=== PATIENT | male | born 1945 | race African-American/Black ===

== ENCOUNTER 2018-09-03 12:44 | Inpatient (IN) | payer MEDICARE ==
[~2018-09-03] VITALS: Ht 167.6 cm; Wt 72.4 kg
--- NOTE | 2018-09-03 12:58 | EKG ---
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
[2018-09-03] MEDS ORDERED: NITROGLYCERIN SUBLINGUAL 0.4 MG BOTTLE OF 25. SL PRN (13:00)
[2018-09-03 13:07] LABS: BASO % 1 % (0-3); EOS % 0 % (0-3); HEMATOCRIT 44.6 % (39.0-53.0); LYMPH # 1.1 x10^3/uL (1.0-4.8); LYMPH % 22 % (24-48); MEAN CORPUSCULAR HEMOGLOBIN 28 pg (25-35); MEAN CORPUSCULAR HGB CONC 34 g/dL (31-37); MEAN CORPUSCULAR VOLUME 82 fL (79-100); MONO # 0.4 x10^3/uL (0.0-1.1); MONO % 8 % (0-9); NEUT # 3.5 x10^3uL (1.8-7.7); NEUT % 70 % (31-73); PLATELET COUNT 265 x10^3/uL (140-400); RED BLOOD COUNT 5.44 x10^6/uL (4.30-5.70); RED CELL DISTRIBUTION WIDTH 14.7 % (11.5-14.5)
[2018-09-03] MEDS ORDERED: ASPIRIN 81 MG TAB.CHEW PO ONE (13:15)
[2018-09-03 13:26] LABS: ALBUMIN 4.1 g/dL (3.4-5.0); ALBUMIN/GLOBULIN RATIO 1.2 (1.0-1.7); CALCIUM 9.4 mg/dL (8.5-10.1); CREATININE 1.2 mg/dL (0.7-1.3); GFR 71.8; MAGNESIUM 2.4 mg/dL (1.8-2.4); TOTAL BILIRUBIN 0.7 mg/dL (0.2-1.0); TOTAL PROTEIN 7.6 g/dL (6.4-8.2)
--- NOTE | 2018-09-03 13:46 | RAD ---
EXAM: CHEST 1 VIEW. HISTORY: Chest pain. COMPARISON: None. FINDINGS: A frontal view of the chest is obtained. There are no confluent infiltrates. There is no pneumothorax or pleural effusion. The heart is not enlarged. Changes of rotator cuff arthropathy and prior rotator cuff repair are noted. IMPRESSION: 1. No confluent infiltrates. Electronically signed by: Bryan Gonzalez MD (09/03/2018 1:44 PM) [facility]
--- NOTE | 2018-09-03 14:02 | PHYS DOC ---
Past History Past Medical History: High Cholesterol, Hypertension Past Surgical History: Other Smoking: Non-smoker Alcohol Use: None Drug Use: None Adult General Chief Complaint Chief Complaint: CHEST PAIN HPI HPI Patient is a 72 year old male who presents with complaining of chest pain. Patient complaining of nonexertional right side and substernal chest pain as an aching pain since 9 AM today as a constant pain that getting worse with movement. Patient denies radiation of pain, shortness of breath, nausea, palpitation, dizziness, focal neuro deficit. Patient states he took 162 mg of aspirin and 2 Advil with decrease of pain from 7 to 5. Patient had a potential and dyslipidemia and family history of coronary artery disease and denies history of chest pain and coronary artery disease, diabetes mellitus, smoking Review of Systems Review of Systems Constitutional: Denies fever or chills [] Eyes: Denies change in visual acuity, redness, or eye pain [] HENT: Denies nasal congestion or sore throat [] Respiratory: Denies cough or shortness of breath [] Cardiovascular: No additional information not addressed in HPI [] GI: Denies abdominal pain, nausea, vomiting, bloody stools or diarrhea [] : Denies dysuria or hematuria [] Musculoskeletal: Denies back pain or joint pain [] Integument: Denies rash or skin lesions [] Neurologic: Denies headache, focal weakness or sensory changes [] Endocrine: Denies polyuria or polydipsia [] All other systems were reviewed and found to be within normal limits, except as documented in this note. Current Medications Current Medications Current Medications Medications (Trade) Dose Ordered Sig/Memo Start Time Stop Time Status Last Admin Dose Admin Aspirin (Children'S Aspirin) 162 mg 1X ONCE 09/03/18 13:15 09/03/18 13:16 DC 09/03/18 13:08 162 MG Nitroglycerin (Nitrostat) 0.4 mg PRN Q5MIN PRN 09/03/18 13:00 09/04/18 12:59 09/03/18 13:08 0.4 MG Allergies Allergies Allergies Coded Allergies Type Severity Reaction Last Updated Verified No Known Drug Allergies 09/03/18 No Physical Exam Physical Exam Constitutional: Well developed, well nourished, mild distress, non-toxic appearance. [] HENT: Normocephalic, atraumatic, oropharynx moist, no oral exudates, nose normal. [] Eyes: PERRLA, EOMI, conjunctiva normal, no discharge. [] Neck: Normal range of motion, no tenderness, supple, no stridor. [] Cardiovascular:Heart rate regular rhythm, no murmur [] Lungs & Thorax: Bilateral breath sounds clear to auscultation [] Abdomen: Bowel sounds normal, soft, no tenderness, no masses, no pulsatile masses. [] Skin: Warm, dry, no erythema, no rash. [] Back: No tenderness, no CVA tenderness. [] Extremities: No tenderness, no cyanosis, no clubbing, ROM intact, no edema. [] Neurologic: Alert and oriented X 3, normal motor function, normal sensory function, no focal deficits noted. [] Psychologic: Affect normal, judgement normal, mood normal. [] Current Patient Data Vital Signs Vital Signs Date Time Temp Pulse Resp B/P (MAP) Pulse Ox O2 Delivery O2 Flow Rate FiO2 09/03/18 13:08 74 164/105 09/03/18 12:46 98.2 18 98 Room Air Lab Results Laboratory Tests Test 09/03/18 12:59 White Blood Count 5.0 x10^3/uL (4.0-11.0) Red Blood Count 5.44 x10^6/uL (4.30-5.70) Hemoglobin 15.0 g/dL (13.0-17.5) Hematocrit 44.6 % (39.0-53.0) Mean Corpuscular Volume 82 fL (79-100) Mean Corpuscular Hemoglobin 28 pg (25-35) Mean Corpuscular Hemoglobin Concent 34 g/dL (31-37) Red Cell Distribution Width 14.7 % (11.5-14.5) H Platelet Count 265 x10^3/uL (140-400) Neutrophils (%) (Auto) 70 % (31-73) Lymphocytes (%) (Auto) 22 % (24-48) L Monocytes (%) (Auto) 8 % (0-9) Eosinophils (%) (Auto) 0 % (0-3) Basophils (%) (Auto) 1 % (0-3) Neutrophils # (Auto) 3.5 x10^3uL (1.8-7.7) Lymphocytes # (Auto) 1.1 x10^3/uL (1.0-4.8) Monocytes # (Auto) 0.4 x10^3/uL (0.0-1.1) Eosinophils # (Auto) 0.0 x10^3/uL (0.0-0.7) Basophils # (Auto) 0.0 x10^3/uL (0.0-0.2) Prothrombin Time 10.0 SEC (9.4-11.4) Prothrombin Time INR 1.0 (0.9-1.1) PTT 26 SEC (23-33) D-Dimer (Rachel) 0.32 mg/L (0.00-0.50) Sodium Level 139 mmol/L (136-145) Potassium Level 4.0 mmol/L (3.5-5.1) Chloride Level 104 mmol/L (98-107) Carbon Dioxide Level 33 mmol/L (21-32) H Anion Gap 2 (6-14) L Blood Urea Nitrogen 13 mg/dL (8-26) Creatinine 1.2 mg/dL (0.7-1.3) Estimated GFR (Cockcroft-Gault) 71.8 BUN/Creatinine Ratio 11 (6-20) Glucose Level 114 mg/dL (70-99) H Calcium Level 9.4 mg/dL (8.5-10.1) Magnesium Level 2.4 mg/dL (1.8-2.4) Total Bilirubin 0.7 mg/dL (0.2-1.0) Aspartate Amino Transferase (AST) 22 U/L (15-37) Alanine Aminotransferase (ALT) 28 U/L (16-63) Alkaline Phosphatase 66 U/L (46-116) Creatine Kinase 200 U/L (39-308) Troponin I Quantitative < 0.017 ng/mL (0-0.055) JK-Wro-E-Type Natriuretic Peptide 152 pg/mL (0-124) H Total Protein 7.6 g/dL (6.4-8.2) Albumin 4.1 g/dL (3.4-5.0) Albumin/Globulin Ratio 1.2 (1.0-1.7) Lipase 131 U/L (73-393) EKG EKG KG interpreted by me. EKG at 1349 showed normal sinus rhythm at rate of 79, PACs , ST and T-wave abnormalities in lateral leads, left ventricular strain, LVH, no acute ST and T-wave abnormalities Radiology/Procedures Radiology/Procedures [address] [address] IMAGING REPORT Signed PATIENT: FRED MAYERS ACCOUNT: [id number] : 1945 LOCATION: ER AGE: 72 SEX: M EXAM STATUS: REG ER ORD. PHYSICIAN: ISMAEL RICE MD REASON: chest pain PROCEDURE: PORTABLE CHEST 1V EXAM: CHEST 1 VIEW. HISTORY: Chest pain. COMPARISON: None. FINDINGS: A frontal view of the chest is obtained. There are no confluent infiltrates. There is no pneumothorax or pleural effusion. The heart is not enlarged. Changes of rotator cuff arthropathy and prior rotator cuff repair are noted. IMPRESSION: 1. No confluent infiltrates. Electronically signed by: Bryan Gonzalez MD (09/03/2018 1:44 PM) [facility] DICTATED AND SIGNED BY: SHIRLEY GONZALEZ MD DATE: 09/03/18 1342 CC: ISMAEL RICE MD; PCP,ADRIAN ~ Course & Med Decision Making Course & Med Decision Making Pertinent Labs and Imaging studies reviewed. (See chart for details) Evaluation of patient in ER showed 72-year-old male patient with multiple cardiac risk factor presented to ER because chest pain that improved with nitroglycerin 2. KG did not show acute ST and T wave abnormality but had nonspecific ST and T-wave changes. Labs including d-dimer and cardiac enzymes was unremarkable. Dr. Mead accepted admission at 1358. Dragon Disclaimer Dragon Disclaimer This electronic medical record was generated, in whole or in part, using a voice recognition dictation system. Departure Departure: Impression: Primary Impression: Acute chest pain Disposition: ADMITTED INPATIENT (at 1400) Admitting Physician: Michael Mead (accepted admission at 1358) Condition: IMPROVED Referrals: PCPADRIAN (PCP) ISMAEL RICE MD Sep 03, 2018 14:01
[2018-09-03] MEDS ORDERED: OXYB5TAB7 PO (16:22)
[2018-09-03] MEDS ORDERED: FINA5TAB4 PO (16:22)
[2018-09-03] MEDS ORDERED: AMLO5TAB7 PO (16:22)
--- NOTE | 2018-09-03 16:52 | HP ---
ADMIT DATE: 09/03/2018 HISTORY OF PRESENT ILLNESS: The patient is a 72-year-old -[place]izen [place] male patient who came to the Emergency Room complaining of right-sided chest pain that is nonexertional, substernal chest pain that started around 9:00 in the morning. His constant pain is getting worse with movement. He denied any radiation. Did complain of shortness of breath, but denied any nausea or vomiting. Denied any diaphoresis, denied any dizziness or lightheadedness. He took two 162 mg aspirin and 2 Advil that helped the pain down from 7 to 5. He apparently has hypertension, hyperlipidemia and has a family history of coronary artery disease, and therefore he came to the Emergency Room for further evaluation and treatment; has had first set of cardiac enzymes, showed troponin to be less than 0.017 and was admitted to do 2 more sets of cardiac enzyme and consult the cardiology team. PAST MEDICAL HISTORY: Significant for hypertension, hyperlipidemia, gastroesophageal reflux disease, benign prostatic hypertrophy, and overactive bladder. PAST SURGICAL HISTORY: Significant for right rotator cuff repair, umbilical hernia repair, right carpal tunnel release and oral surgery for reconstruction of his mandible. ALLERGIES: He has no known drug allergies. He is on for hypertension and hyperlipidemia. He is on finasteride 5 mg tablet once a day, amlodipine besylate 5 mg once a day, and oxybutynin chloride 1 tablet twice a day. FAMILY HISTORY: He has 1 brother who is older and alive at the age of 75, has diabetes mellitus. One sister at the age of 60 because of liver cancer. His mother has at the age of 77 because of myocardial infarction. Father because of sepsis at the age of 50. SOCIAL HISTORY: He is , has 4 sons. He does not smoke, drinks alcohol occasionally and does not use any drugs. 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 REVIEW OF SYSTEMS: The patient denied any blurring of vision, cataract, glaucoma or macular degeneration. Denied any earache, tinnitus or sensorineural deafness. Denied any nosebleeds, stuffy nose or postnasal drip. Denied any sore throat, sore tongue, toothache, hoarseness of voice or difficulty swallowing. Denied any nausea, vomiting, diarrhea or constipation. Denied any hematemesis, melena or hematochezia. Denied any dysuria, frequency or hematuria. He did complain of chest pain, but denied any shortness of breath, orthopnea, paroxysmal nocturnal dyspnea. Denied any cough, phlegm or hemoptysis. Denied any chills, rigors or fever. PHYSICAL EXAMINATION: GENERAL: On arrival to the Emergency Room, he looked well and was clearly in no apparent respiratory distress. There was no pallor, jaundice or cyanosis. No lymphadenopathy, no thyromegaly. No jugular venous distention. No limb edema. VITAL SIGNS: Heart rate was 84, blood pressure 164/105, temperature was 98.2, respiratory rate was 18 and oxygen saturation was 98% on room air. HEAD, EYES, EARS, NOSE AND THROAT: Showed normocephalic, atraumatic. NECK: Supple. HEART: Showed normal first and second heart sounds with no gallop, rub or murmur. CHEST: Clear to auscultation. No crepitation or rhonchi. ABDOMEN: Distended, soft, nontender. NEUROLOGIC: He was awake, alert, responding appropriately. Cranial nerves are intact. EXTREMITIES: He moves extremities without difficulty, ambulates without assistance or assistive devices. LABORATORY DATA: Showed a white cell count 5000, hemoglobin 15, hematocrit 45, MCV 82 and platelet count of 265,000. Serum sodium was 139, potassium 4, chloride 104, bicarbonate 33, anion gap of 2, BUN 13, creatinine 1.2, estimated GFR was 71 mL per minute. His glucose 114, calcium was 9.4, magnesium was 2.4. Total bilirubin, AST, ALT, alkaline phosphatase were normal. His beta natriuretic peptide was 152. Total protein 7.6, albumin 4.1, lipase 131. His first set of cardiac enzymes showed troponin to be less than 0.017. His prothrombin time was 10, INR of 1, aPTT was 26 and D-dimer was 0.32. His chest x-ray showed there is no confluent infiltrate. There is no pneumothorax, pleural effusion. The heart is not enlarged, change of rotator cuff arthropathy and prior rotator cuff repair are noted. So, his EKG showed that he was in sinus rhythm at a rate of 79 with a premature atrial contraction, ST-T changes in the lateral leads and left ventricular strain without any ST segment elevation or depression. ASSESSMENT AND PLAN: The patient was admitted with chest pain. The patient has hypertension, hyperlipidemia, family history of diabetes, and myocardial infarction. We will do 2 more sets of cardiac enzyme and check his fasting lipid profile and consult the cardiology team and decide on further management accordingly. VIVIANA POWELL MD DR: CANDIDO/homar JOB#: [id number] / [id number]
[2018-09-03 17:46] VITALS: BP 146/88
--- NOTE | 2018-09-03 17:47 | RAD ---
EXAM: Right ribs, 4 views. HISTORY: Trauma. COMPARISON: None. FINDINGS: 4 views of the right ribs are obtained. There is no evidence of fracture. There is superior migration of the right humeral head with decreased subacromial space due to a chronic rotator cuff tear. There is suspected distal clavicular resection. There is a suture anchor within the humeral head. IMPRESSION: No acute osseous finding. Electronically signed by: Enma Low MD (09/03/2018 5:45 PM) [facility]
[2018-09-03] MEDS: OXYBUTYNIN CHLORIDE 5 MG TABLET PO SCH (19:57)
[2018-09-03 22:45] VITALS: BP 136/86
[2018-09-04 05:40] VITALS: BP 142/84
[2018-09-04] MEDS ORDERED: FINASTERIDE 5 MG TABLET PO SCH (09:00)
[2018-09-04] MEDS ORDERED: amLODIPine BESYLATE 5 MG TABLET PO SCH (09:00)
[2018-09-04] MEDS: OXYBUTYNIN CHLORIDE 5 MG TABLET PO SCH (09:27)
[2018-09-04 12:17] VITALS: BP 123/85
--- NOTE | 2018-09-04 12:50 | PDOC2 ---
CONSULT Date of Admission DATE: 09/04/18 TIME: 12:50 Reason for Consult: Chest pain Referring Physician: Dr. Mead Chief Complaint Chest pain Source: Chart review, Patient Problem List Problems Medical Problems: (1) Acute chest pain Status: Acute History of Present Illness 72-year-old male presented with right-sided sharp chest pain not related to exertion or food intake, 8/10 severity, worse with movement of his body and with deep breaths. He denied any orthopnea/PND, palpitations or syncope. The pain improved after he took aspirin and Advil. He denied any previous cardiac history. Past Medical History Hypertension Hyperlipidemia BPH GERD Past Surgical History Rotator cuff repair Umbilical hernia repair Carpal tunnel release surgery Family History Coronary artery disease, hypertension Social History Patient admitted to social intake of alcohol but denied any smoking or drug abuse. Current Medications Current Medications Aspirin (Children'S Aspirin) 162 mg 1X ONCE PO Last administered on 09/03/18at 13:08; Start 09/03/18 at 13:15; Stop 09/03/18 at 13:16; Status DC Nitroglycerin (Nitrostat) 0.4 mg PRN Q5MIN PRN SL CP RATING > 1/10 Last administered on 09/03/18at 13:08; Start 09/03/18 at 13:00; Stop 09/04/18 at 12:59 Oxybutynin Chloride (Ditropan) 10 mg BID PO Last administered on 09/04/18at 09: 27; Start 09/03/18 at 21:00 Amlodipine Besylate (Norvasc) 5 mg DAILY PO Last administered on 09/04/18at 09: 28; Start 09/04/18 at 09:00 Finasteride (Proscar) 5 mg DAILY PO Last administered on 09/04/18at 09:28; Start 09/04/18 at 09:00 Active Scripts Active Reported Amlodipine Besylate 5 Mg Tablet 5 Mg PO DAILY Oxybutynin Chloride 5 Mg Tablet 10 Mg PO BID Finasteride 5 Mg Tablet 5 Mg PO DAILY Allergies: Coded Allergies: No Known Drug Allergies (Unverified , 09/03/18) PSYCHOLOGICAL ROS: No: Hallucinations Eyes: No: Loss of vision HEENT: No: Epistaxis Respiratory: No: Hemoptysis, Shortness of breath Cardiovascular: yes: Chest Pain Gastrointestinal: No: Vomiting, Diarrhea Genitourinary: No: Henaturia Neurological: No: Seizures Skin: No: Rash General: Alert, Oriented X3 HEENT: Atraumatic Lungs: Clear to auscultation Heart: Regular rate Abdomen: Soft Extremities: No edema Psych/Mental Status: Mood NL VITALS Vital Signs Date Time Temp Pulse Resp B/P (MAP) Pulse Ox O2 Delivery O2 Flow Rate FiO2 09/04/18 12:17 98.7 69 123/85 (98) 09/04/18 08:00 Room Air 09/04/18 05:40 18 98 Labs Laboratory Tests Test 09/03/18 12:59 09/03/18 16:45 09/03/18 21:48 09/04/18 06:33 White Blood Count 5.0 x10^3/uL (4.0-11.0) Red Blood Count 5.44 x10^6/uL (4.30-5.70) Hemoglobin 15.0 g/dL (13.0-17.5) Hematocrit 44.6 % (39.0-53.0) Mean Corpuscular Volume 82 fL (79-100) Mean Corpuscular Hemoglobin 28 pg (25-35) Mean Corpuscular Hemoglobin Concent 34 g/dL (31-37) Red Cell Distribution Width 14.7 % (11.5-14.5) Platelet Count 265 x10^3/uL (140-400) Neutrophils (%) (Auto) 70 % (31-73) Lymphocytes (%) (Auto) 22 % (24-48) Monocytes (%) (Auto) 8 % (0-9) Eosinophils (%) (Auto) 0 % (0-3) Basophils (%) (Auto) 1 % (0-3) Neutrophils # (Auto) 3.5 x10^3uL (1.8-7.7) Lymphocytes # (Auto) 1.1 x10^3/uL (1.0-4.8) Monocytes # (Auto) 0.4 x10^3/uL (0.0-1.1) Eosinophils # (Auto) 0.0 x10^3/uL (0.0-0.7) Basophils # (Auto) 0.0 x10^3/uL (0.0-0.2) Prothrombin Time 10.0 SEC (9.4-11.4) Prothromb Time International Ratio 1.0 (0.9-1.1) Activated Partial Thromboplast Time 26 SEC (23-33) D-Dimer (Rachel) 0.32 mg/L (0.00-0.50) Sodium Level 139 mmol/L (136-145) Potassium Level 4.0 mmol/L (3.5-5.1) Chloride Level 104 mmol/L (98-107) Carbon Dioxide Level 33 mmol/L (21-32) Anion Gap 2 (6-14) Blood Urea Nitrogen 13 mg/dL (8-26) Creatinine 1.2 mg/dL (0.7-1.3) Estimated GFR (Cockcroft-Gault) 71.8 BUN/Creatinine Ratio 11 (6-20) Glucose Level 114 mg/dL (70-99) Calcium Level 9.4 mg/dL (8.5-10.1) Magnesium Level 2.4 mg/dL (1.8-2.4) Total Bilirubin 0.7 mg/dL (0.2-1.0) Aspartate Amino Transf (AST/SGOT) 22 U/L (15-37) Alanine Aminotransferase (ALT/SGPT) 28 U/L (16-63) Alkaline Phosphatase 66 U/L (46-116) Creatine Kinase 200 U/L (39-308) Troponin I Quantitative < 0.017 ng/mL (0-0.055) < 0.017 ng/mL (0-0.055) < 0.017 ng/mL (0-0.055) TN-Loi-G-Type Natriuretic Peptide 152 pg/mL (0-124) Total Protein 7.6 g/dL (6.4-8.2) Albumin 4.1 g/dL (3.4-5.0) Albumin/Globulin Ratio 1.2 (1.0-1.7) Lipase 131 U/L (73-393) Triglycerides Level 100 mg/dL (0-150) Cholesterol Level 265 mg/dL (0-200) LDL Cholesterol, Calculated 143 mg/dL (0-100) VLDL Cholesterol, Calculated 20 mg/dL (0-40) Non-HDL Cholesterol Calculated 163 mg/dL (0-129) HDL Cholesterol 102 mg/dL (40-60) Cholesterol/HDL Ratio 2.0 Assessment/Plan 1. Chest pain with atypical features and most probably musculoskeletal. Myocardial infarction has been ruled out based on EKG and cardiac enzymes. Plan for outpatient ischemic evaluation with exercise stress echocardiogram. 2. Hypertension: Controlled Thank you for your consultation SACHA BRIDGES MD Sep 04, 2018 12:50
--- NOTE | 2018-09-04 14:16 | DS ---
DATE OF DISCHARGE: 09/04/2018 HOSPITAL COURSE: The patient is a 72-year-old -[place] male patient complaining of chest pain, mostly on the right side. The pain is worse with movement. He denied any radiation and did complain of shortness of breath, but denied any nausea or vomiting, denied any diaphoresis. He has had 3 sets of cardiac enzymes that ruled out myocardial infarction. His EKG was also unremarkable and he basically was seen by the Cardiology team today and their recommendation was for him can be discharged home and to arrange for stress testing as an outpatient. PHYSICAL EXAMINATION: GENERAL: When I saw him today, he looked well and was clearly in no apparent respiratory distress, pale, but no jaundice, cyanosis, or thyromegaly. No jugular venous distension. No lower limb edema. VITAL SIGNS: Her heart rate was 69, blood pressure 123/85, his temperature was 98.7, respiratory rate was 18, and oxygen saturation was 98%. HEENT: Examination of the head, eyes, ears, nose and throat showed normocephalic, atraumatic. NECK: Supple. HEART: Showed normal first and second sounds. No gallop, rub or murmur. CHEST: Clear to auscultation. No crepitation or rhonchi. ABDOMEN: Distended, soft, nontender. No guarding or rigidity. No organomegaly. Hernial orifices are intact. Bowel sounds normal. NEUROLOGIC: He was awake, alert, responding appropriately. His cranial nerves are intact. EXTREMITIES: He moves extremities without difficulty. LABORATORY DATA: His lab work showed that his serum sodium was 139, potassium 4, chloride 104, bicarbonate 33, anion gap of 2, BUN 13, creatinine 1.2, estimated GFR was 72 mL per minute. His glucose was 114, calcium was 9.4, magnesium 2.4. Total bilirubin, AST, ALT, alkaline phosphatase were normal. He has 3 sets of cardiac enzymes that all showed troponin to be less than 0.017. Serum triglycerides were 100, total cholesterol was 165, LDL was 143, VLDL was 20, and HDL was 102, and ratio was 2. His serum lipase was 131. His white cell count was 5000, hemoglobin 15, hematocrit 45, MCV 82, and platelet count 265,000. His prothrombin time was 10, INR of 1, aPTT was 26, and D-dimer was 0.32. DISCHARGE MEDICATIONS: He was discharged home to continue on his amlodipine 5 mg once a day, finasteride 5 mg once a day, and oxybutynin 10 mg p.o. b.i.d. FINAL DISCHARGE DIAGNOSES: Chest pain, myocardial infarction ruled out, hypertension, benign prostatic hypertrophy, and overactive bladder. VIVIANA POWELL MD DR: CANDIDO/homar JOB#: [id number] / [id number]
== END 2018-09-04 14:11 | disposition home or self-care (01) | DRG 313 ==
LOC: ER 12:44 → 1 SOUTH 15:29
PROVIDERS: ADMIT Internal Medicine; ATTEND Internal Medicine
DX: R07.89 Other chest pain (principal); E78.00 Pure hypercholesterolemia, unspecified; E78.5 Hyperlipidemia, unspecified; I10 Essential (primary) hypertension; K21.9 Gastro-esophageal reflux disease without esophagitis; N32.81 Overactive bladder; N40.1 Benign prostatic hyperplasia with lower urinary tract symptoms; Z80.0 Family history of malignant neoplasm of digestive organs; Z82.49 Family history of ischemic heart disease and other diseases of the circulatory system; Z83.3 Family history of diabetes mellitus
CPT/HCPCS: 36415; 71045; 71100; 80053; 80061; 82550; 83690; 83735; 83880; 84484; 85025; 85379; 85610; 85730; 93005; 99285-25

== ENCOUNTER → 2018-11-15 | Outpatient (CLI) | payer MEDICARE, OTHER ==
[~2018-11-15] MED LIST: AMLO5TAB7 PO; FINA5TAB4 PO; OXYB5TAB7 PO
--- NOTE | 2018-11-15 12:13 | CARD ---
MR#: [id number] Date of Study: 11/15/2018 Ordering Physician: SACHA BRIDGES, Referring Physician: Doe MAX: Diana Murphy RDCS APPROVED REPORT INDICATION Chest Pain PROCEDURE The patient underwent an Exercise Stress Test using the Anderson Protocol. Blood pressure, heart rate, a nd EKG were monitored. An Echocardiogram was performed by mine technician in four stages in quad fashion. At peak stress four se lected images were obtained and placed side by side with resting images for comparison. STRESS ECHO FINDINGS The resting Echocardiogram showed normal left ventricular systolic contractility with an estimated Ej ection Fraction of about 60 %. The Resting Echocardiogram showed normal augmentation of myocardial wall segments using a 16 segment model. The Stress Echocardiogram showed normal augmentation of myocardial wall segments using a 16 segment m corona. The Stress Echocardiogram left ventricular systolic contractility has an estimated Ejection Fraction of about 65%. Test Type: Exercise Stress Nurse/Tech: CYDNEY Barger Test Indications: Chest Pain Resting ECG: Sinus Rhythm with non-specific T wave changes Resting Heart Rate: 72 bpm Resting Blood Pressure: 128/68mmHg Pretest Chest Pain: None Nurse/Tech Notes No chest pain, no shortness of breath PVC's and one couplet at max exercise POST EXERCISE Target HR: 124 Max HR: 164 bpm 132% of Maximum Predicted HR: bpm Exercise duration: 7:45 min:sec, 3 Stage Exercise capacity: 10METs Max Blood Pressure: 200/110mmHg Blood Pressure response to exercise: Normal blood pressure response during stress. Heart Rate response to exercise: physiologic INTERPRETATION Stress EKG Conclusion: Baseline EKG showed sinus rhythm. Non diagnostic changes at peak stress. No arrhythmias. Preliminary Notification Critical Value: No <Conclusion> Treadmill exercise stress echocardiogram did not show any evidence of ischemia or infarct. Normal left ventricle systolic function with ejection fraction estimated at 60%. Patient had good activity tolerance. Low risk for cardiac events. Signed by : Sacha Bridges, Electronically Approved : 11/15/2018 12:11:40
== END | disposition home or self-care (01) ==
LOC: ECHO 09:23
PROVIDERS: ATTEND Internal Medicine Cardiovascular Disease
DX: R07.89 Other chest pain (principal); I10 Essential (primary) hypertension; E78.49 Other hyperlipidemia
CPT/HCPCS: 93307; 93350

== ENCOUNTER → 2021-06-26 | Day surgery (SDC) | payer MEDICARE, OTHER ==
[~2021-06-26] MED LIST changes: +ACETAMINOPHEN 500 MG TABLET PO PRN; +AMLO-186 PO; -AMLO5TAB7 PO; +ASPI-630 PO; +BALANCED SALT IRRIG SOLN NO.2 500 ML IO ONE; +BENZONATATE 100 MG CAPSULE. PO PRN; +BRIMONIDINE 0.2% OPHTH SOLUTION 5ML BOTTLE. OD ONE; +CEFUROXIME OPHTH 4 MG/0.4 ML SYRINGE. OD ONE; +CHONDROIT-SOD-HYALURONATE KIT. OD ONE; +IBUPROFEN 200 MG TABLET PO PRN; +IPRATRPIUM/ALBUTEROL 0.5/2.5MG 3 ML NEBU. NEB PRN; +IV RINGERS SOLUTION,LACTATED 1,000 ML IV SCH; +LIDO/EPI IN BSS OPHTH 2.7 ML SYRINGE. OD ONE; +LIDOCAINE 2% JELLY 6ML IN APPLICATOR. ONE; +MIDAZOLAM HCL PF 2 MG/2 ML VIAL. IV ONE; +ONDANSETRON PF 4 MG/2 ML VIAL. IV PRN; +OXYB5TAB10 PO; -OXYB5TAB7 PO; +PHENYLEPHRINE 10% OPHTH SOLUTION 5ML BOTTLE. OD PRN; +POVIDONE-IODINE 5% OPHTH SOLUTION 30ML BOTTLE. OD ONE; +POVIDONE-IODINE 5% OPHTH SOLUTION 30ML BOTTLE. OD PRN; +POVIDONE-IODINE 5% OPHTH SOLUTION 30ML BOTTLE. ONE; +PROPARACAINE 0.5% OPHTH SOLUTION 15ML BOTTLE. OD ONE; +PROPARACAINE 0.5% OPHTH SOLUTION 15ML BOTTLE. OD PRN; +prednisoLONE ACETATE 1% OPHTH SUSPENSION 5ML BOTTLE. OD ONE
[2021-06-26] MEDS: PHENYLEPHRINE 2.5% OPHTH SOLUTION 2ML BOTTLE. OD SCH ×3 (07:49→08:00)
[2021-06-26] MEDS: TROPICAMIDE 1% OPHTH SOLUTION 15ML BOTTLE. OD SCH ×3 (07:49→08:00)
[2021-06-26] MEDS: KETOROLAC TROMETHAMINE 0.5% OPHTH SOLUTION BOTTLE. OD SCH ×2 (07:50→07:54)
[2021-06-26] MEDS: TOBRAMYCIN 0.3% OPHTH SOLUTION 5ML BOTTLE. OD SCH ×2 (07:50→07:54)
--- NOTE | 2021-06-26 08:37 | PDOC4 ---
SURGEON: Shirley Will MD Date of Procedure: 06/26/21 PREOP Diagnosis Visually significant cataract: Right Eye OD Pre-existing astigmatism: Right Eye OD POSTOP Diagnosis Same ANESTHESIA Deep forniceal periocular 2% Lidocaine jelly Fabiola/retro bulbar block with 2% Lidocaine with 0.5% Marcaine DESCRIPTION OF PROCEDURE The risks, benefits, and alternatives were discussed with the patient who elected to proceed. Informed consent was obtained in writing and placed in the chart After anesthetizing the eye topically, the patient was taken to the operating room, and the operative eye was prepped and draped in the usual sterile fashion for ocular surgery. A wire lid speculum was placed. A 1-mm clear corneal paracentesis incision was created with the side-port blade at a position three o'clock hours clockwise from the temporal cornea. Then, 1% non-preserved Lidocaine with epinephrine was injected into the anterior chamber followed by viscoelastic. Cotton-tipped applicators were used to stabilize the globe, and a 2.4 mm keratome was used to create a self-sealing incision in clear cornea at the temporal limbus. The Utrata forceps were used to create a continuous curvilinear capsulorrhexis. Balanced saline solution was injected via cannula beneath the capsulorrhexis edge to hydrodissect the lens nucleus and cortex from the lens capsule. The phacoemulsification handpiece and a chopping instrument were then used to remove the lens nucleus. The remaining epinuclear material and cortex were removed with the irrigation/aspiration handpiece. Viscoelastic was used to re-inflate the lens capsule, and the intraocular lens was injected directly into the capsular bag. The corneal wound edges were hydr ated with balanced salt solution on a cannula and the irrigation/aspiration handpiece was used to extract the remaining viscoelastic. Cefuroxime 0.1mg/ml / Vigamox 0.5% was injected into the anterior chamber intracamerally. The wounds were inspected and found to be watertight at an appropriate intraocular pressure. Topical antibiotic drops were placed on the corneal surface. LRI: No If Yes, Number [] [place] [] Length [] degrees Depth [] microns Incision [place]: 180 Toric Lens [place] [175] Patch/shield with Maxitrol/Tobradex/Erythromycin ointment: Yes No Co-managed patients/postop examination stable for co-management with referring doctor. EBL EBL: None SPECIMANS COLLECTED Specimens Collected: None SHIRLEY WILL MD Jun 26, 2021 08:37
[2021-06-26 08:47] VITALS: BP 123/83
== END | disposition home or self-care (01) ==
LOC: SURG 07:31
PROVIDERS: ATTEND Ophthalmology
DX: H25.89 Other age-related cataract (principal); I10 Essential (primary) hypertension; K21.9 Gastro-esophageal reflux disease without esophagitis; E78.00 Pure hypercholesterolemia, unspecified; Z79.82 Long term (current) use of aspirin; Z79.899 Other long term (current) drug therapy; Z98.890 Other specified postprocedural states
CPT/HCPCS: 66984; J2250; V2632

== ENCOUNTER → 2021-07-21 | Outpatient (CLI) | payer MEDICARE, OTHER ==
[~2021-07-21] MED LIST changes: -ACETAMINOPHEN 500 MG TABLET PO PRN; -BALANCED SALT IRRIG SOLN NO.2 500 ML IO ONE; -BENZONATATE 100 MG CAPSULE. PO PRN; -BRIMONIDINE 0.2% OPHTH SOLUTION 5ML BOTTLE. OD ONE; -CEFUROXIME OPHTH 4 MG/0.4 ML SYRINGE. OD ONE; -CHONDROIT-SOD-HYALURONATE KIT. OD ONE; -IBUPROFEN 200 MG TABLET PO PRN; -IPRATRPIUM/ALBUTEROL 0.5/2.5MG 3 ML NEBU. NEB PRN; -IV RINGERS SOLUTION,LACTATED 1,000 ML IV SCH; -LIDO/EPI IN BSS OPHTH 2.7 ML SYRINGE. OD ONE; -LIDOCAINE 2% JELLY 6ML IN APPLICATOR. ONE; -MIDAZOLAM HCL PF 2 MG/2 ML VIAL. IV ONE; -ONDANSETRON PF 4 MG/2 ML VIAL. IV PRN; -PHENYLEPHRINE 10% OPHTH SOLUTION 5ML BOTTLE. OD PRN; -POVIDONE-IODINE 5% OPHTH SOLUTION 30ML BOTTLE. OD ONE; -POVIDONE-IODINE 5% OPHTH SOLUTION 30ML BOTTLE. OD PRN; -POVIDONE-IODINE 5% OPHTH SOLUTION 30ML BOTTLE. ONE; -PROPARACAINE 0.5% OPHTH SOLUTION 15ML BOTTLE. OD ONE; -PROPARACAINE 0.5% OPHTH SOLUTION 15ML BOTTLE. OD PRN; -prednisoLONE ACETATE 1% OPHTH SUSPENSION 5ML BOTTLE. OD ONE
[2021-07-24 13:24] VITALS: BP 122/96
== END ==
LOC: LAB 13:47
PROVIDERS: ATTEND Ophthalmology
DX: Z01.812 Encounter for preprocedural laboratory examination (principal); Z20.822 Contact with and (suspected) exposure to COVID-19; H26.9 Unspecified cataract
CPT/HCPCS: C9803; U0003

== ENCOUNTER → 2021-07-24 | Day surgery (SDC) | payer MEDICARE, OTHER ==
[~2021-07-24] MED LIST changes: +ACETAMINOPHEN 500 MG TABLET PO PRN; +BALANCED SALT IRRIG SOLN NO.2 500 ML IO ONE; +BENZONATATE 100 MG CAPSULE. PO PRN; +BRIMONIDINE 0.2% OPHTH SOLUTION 5ML BOTTLE. OS ONE; +CEFUROXIME OPHTH 4 MG/0.4 ML SYRINGE. OS ONE; +CHONDROIT-SOD-HYALURONATE KIT. OS ONE; +IBUPROFEN 200 MG TABLET PO PRN; +IPRATRPIUM/ALBUTEROL 0.5/2.5MG 3 ML NEBU. NEB PRN; +IV RINGERS SOLUTION,LACTATED 1,000 ML IV SCH; +LIDO/EPI IN BSS OPHTH 2.7 ML SYRINGE. OS ONE; +LIDOCAINE 2% JELLY 6ML IN APPLICATOR. ONE; +MIDAZOLAM HCL PF 2 MG/2 ML VIAL. IV ONE; +MIDAZOLAM HCL PF 2 MG/2 ML VIAL. ONE; +ONDANSETRON PF 4 MG/2 ML VIAL. IV PRN; +PHENYLEPHRINE 10% OPHTH SOLUTION 5ML BOTTLE. OS PRN; +POVIDONE-IODINE 5% OPHTH SOLUTION 30ML BOTTLE. ONE; +POVIDONE-IODINE 5% OPHTH SOLUTION 30ML BOTTLE. OS ONE; +POVIDONE-IODINE 5% OPHTH SOLUTION 30ML BOTTLE. OS PRN; +PROPARACAINE 0.5% OPHTH SOLUTION 15ML BOTTLE. OS ONE; +PROPARACAINE 0.5% OPHTH SOLUTION 15ML BOTTLE. OS PRN; +prednisoLONE ACETATE 1% OPHTH SUSPENSION 5ML BOTTLE. OS ONE
[2021-07-24] MEDS: PHENYLEPHRINE 2.5% OPHTH SOLUTION 2ML BOTTLE. OS SCH ×3 (11:23→11:32)
[2021-07-24] MEDS: KETOROLAC TROMETHAMINE 0.5% OPHTH SOLUTION BOTTLE. OS SCH ×2 (11:23→11:28)
[2021-07-24] MEDS: TROPICAMIDE 1% OPHTH SOLUTION 15ML BOTTLE. OS SCH ×3 (11:23→11:32)
[2021-07-24] MEDS: TOBRAMYCIN 0.3% OPHTH SOLUTION 5ML BOTTLE. OS SCH ×2 (11:23→11:28)
--- NOTE | 2021-07-24 13:15 | PDOC4 ---
SURGEON: Shirley Will MD Date of Procedure: 07/24/21 PREOP Diagnosis Visually significant cataract: Left Eye OS Pre-existing astigmatism: Left Eye OS POSTOP Diagnosis Same PROCEDURE: Phaco w/ posterior chamber IOL: Left Eye OS ANESTHESIA Deep forniceal periocular 2% Lidocaine jelly Fabiola/retro bulbar block with 2% Lidocaine with 0.5% Marcaine DESCRIPTION OF PROCEDURE The risks, benefits, and alternatives were discussed with the patient who elected to proceed. Informed consent was obtained in writing and placed in the chart After anesthetizing the eye topically, the patient was taken to the operating room, and the operative eye was prepped and draped in the usual sterile fashion for ocular surgery. A wire lid speculum was placed. A 1-mm clear corneal paracentesis incision was created with the side-port blade at a position three o'clock hours clockwise from the temporal cornea. Then, 1% non-preserved Lidocaine with epinephrine was injected into the anterior chamber followed by viscoelastic. Cotton-tipped applicators were used to stabilize the globe, and a 2.4 mm keratome was used to create a self-sealing incision in clear cornea at the temporal limbus. The Utrata forceps were used to create a continuous curvilinear capsulorrhexis. Balanced saline solution was injected via cannula beneath the capsulorrhexis edge to hydrodissect the lens nucleus and cortex from the lens capsule. The phacoemulsification handpiece and a chopping instrument were then used to remove the lens nucleus. The remaining epinuclear material and cortex were removed with the irrigation/aspiration handpiece. Viscoelastic was used to re-inflate the lens capsule, and the intraocular lens was injected directly into the capsular bag. The corneal wound edges were hydrated with balanced salt solution on a cannula and the irrigation/aspiration handpiece was used to extract the remaining viscoelastic. Cefuroxime 0.1mg/ml / Vigamox 0.5% was injected into the anterior chamber intracamerally. The wounds were inspected and found to be watertight at an appropriate intraocular pressure. Topical antibiotic drops were placed on the corneal surface. LRI: No If Yes, Number [] [place] [] Length [] degrees Depth [] microns Incision [place]: 180 Toric Lens [place] [010] Patch/shield with Maxitrol/Tobradex/Erythromycin ointment: Yes No Co-managed patients/postop examination stable for co-management with referring doctor. EBL EBL: None SPECIMANS COLLECTED Specimens Collected: None SHIRLEY WILL MD Jul 24, 2021 13:15
[2021-07-24 13:24] VITALS: BP 122/96
== END | disposition home or self-care (01) ==
LOC: SURG 09:49
PROVIDERS: ATTEND Ophthalmology
DX: H25.89 Other age-related cataract (principal); I10 Essential (primary) hypertension; K21.9 Gastro-esophageal reflux disease without esophagitis; E78.00 Pure hypercholesterolemia, unspecified; Z79.82 Long term (current) use of aspirin; Z79.899 Other long term (current) drug therapy; Z98.890 Other specified postprocedural states; Z20.822 Contact with and (suspected) exposure to COVID-19
CPT/HCPCS: 66984; C9803; J2250; U0003; V2632

== ENCOUNTER 2021-10-16 11:55 | Emergency (ER) | payer MEDICARE, OTHER ==
[~2021-10-16] VITALS: Ht 165.1 cm; Wt 66.6 kg
[~2021-10-16 11:55] MED LIST changes: -ACETAMINOPHEN 500 MG TABLET PO PRN; -BALANCED SALT IRRIG SOLN NO.2 500 ML IO ONE; -BENZONATATE 100 MG CAPSULE. PO PRN; -BRIMONIDINE 0.2% OPHTH SOLUTION 5ML BOTTLE. OS ONE; -CEFUROXIME OPHTH 4 MG/0.4 ML SYRINGE. OS ONE; -CHONDROIT-SOD-HYALURONATE KIT. OS ONE; -IBUPROFEN 200 MG TABLET PO PRN; -IPRATRPIUM/ALBUTEROL 0.5/2.5MG 3 ML NEBU. NEB PRN; -IV RINGERS SOLUTION,LACTATED 1,000 ML IV SCH; -LIDO/EPI IN BSS OPHTH 2.7 ML SYRINGE. OS ONE; -LIDOCAINE 2% JELLY 6ML IN APPLICATOR. ONE; -MIDAZOLAM HCL PF 2 MG/2 ML VIAL. IV ONE; -MIDAZOLAM HCL PF 2 MG/2 ML VIAL. ONE; -ONDANSETRON PF 4 MG/2 ML VIAL. IV PRN; -PHENYLEPHRINE 10% OPHTH SOLUTION 5ML BOTTLE. OS PRN; -POVIDONE-IODINE 5% OPHTH SOLUTION 30ML BOTTLE. ONE; -POVIDONE-IODINE 5% OPHTH SOLUTION 30ML BOTTLE. OS ONE; -POVIDONE-IODINE 5% OPHTH SOLUTION 30ML BOTTLE. OS PRN; -PROPARACAINE 0.5% OPHTH SOLUTION 15ML BOTTLE. OS ONE; -PROPARACAINE 0.5% OPHTH SOLUTION 15ML BOTTLE. OS PRN; -prednisoLONE ACETATE 1% OPHTH SUSPENSION 5ML BOTTLE. OS ONE
--- NOTE | 2021-10-16 12:26 | PHYS DOC ---
Past History Past Medical History: High Cholesterol, Hypertension Past Surgical History: Other Smoking: Non-smoker Alcohol Use: None Drug Use: None Adult General Chief Complaint Chief Complaint: DIZZY/LIGHT HEADED HPI HPI Patient is a 75-year-old male presenting for dizziness. This is an acute on chronic issue. He has had issues with this in the past and [facility] Admits to suffering from dizziness that feels like he is on a boat, he oftentimes loses balance but denies any recent falls. Reports he had episode like this 2 months ago and was [facility] and had comprehensive ER work-up that was ultimately nonconcerning and he was discharged home. There is concern about association with recently started rosuvastatin medication so patient stop this temporarily. Nonetheless, patient saw primary care physician 48 hours ago and was restarted on rosuvastatin. Ever since, patient reports worsening dizziness that is exacerbated with positional changes. He has history of high blood pressure, BPH, and high cholesterol only. No prior CVA or residual deficits. States symptoms come and go, he is currently asymptomatic at time of evaluation in the ER Review of Systems Review of Systems Fourteen body systems of review of systems have been reviewed. See HPI for per tinent positives and negative responses, other price all other systems are negative, non-pertinent or non-contributory Current Medications Current Medications Current Medications Medications (Trade) Dose Ordered Sig/Memo Start Time Stop Time Status Last Admin Dose Admin Meclizine HCl (Antivert) 25 mg 1X ONCE 10/16/21 12:30 10/16/21 12:31 UNV Sodium Chloride 500 ml @ 0 mls/hr 1X ONCE 10/16/21 12:30 10/16/21 12:31 UNV Allergies Allergies Allergies Coded Allergies Type Severity Reaction Last Updated Verified No Known Drug Allergies 07/24/21 No Physical Exam Physical Exam General: Appears well, non toxic, and comfortable Skin: Warm, dry. Normal for ethnicity. HEENT: Atraumatic. PERRLA. Moist mucous membranes. Neck: Trachea midline. Normal ROM. Respiratory: Normal WOB. CTAB w/o w/r/r. No tachypnea. Cardiovascular: Regular rate and rhythm. Normal peripheral perfusion. No edema. Abdomen: Soft. Non tender. No distension. Back: Normal ROM. Musculoskeletal: No swelling or deformity. Neuro: Alert and oriented x 4. MAEE. GCS 15. Normal FNF. Normal Martín. CN II-XII intact. Normal strength and sensation. Normal speech. Psych: Normal affect and mood. Current Patient Data Vital Signs Vital Signs Date Time Temp Pulse Resp B/P (MAP) Pulse Ox O2 Delivery O2 Flow Rate FiO2 10/16/21 12:22 97.6 91 16 144/96 (112) 99 Room Air Vital Signs Date Time Temp Pulse Resp B/P (MAP) Pulse Ox O2 Delivery O2 Flow Rate FiO2 10/16/21 12:22 97.6 91 16 144/96 (112) 99 Room Air Lab Results Laboratory Tests Test 10/16/21 12:34 10/16/21 12:48 10/16/21 12:50 Urine Collection Type Unknown Urine Color Straw Urine Clarity Clear Urine pH 6.0 Urine Specific [place] <=1.005 Urine Protein Neg Urine Glucose (UA) Neg mg/dL Urine Ketones (Stick) Neg mg/dL Urine Blood Neg Urine Nitrite Neg Urine Bilirubin Neg Urine Urobilinogen Dipstick 0.2 mg/dL Urine Leukocyte Esterase Neg Urine RBC 0 /HPF Urine WBC 0 /HPF Urine Squamous Epithelial Cells Few /LPF Urine Bacteria 0 /HPF White Blood Count 3.8 x10^3/uL Red Blood Count 5.92 x10^6/uL Hemoglobin 16.4 g/dL Hematocrit 49.8 % Mean Corpuscular Volume 84 fL Mean Corpuscular Hemoglobin 28 pg Mean Corpuscular Hemoglobin Concent 33 g/dL Red Cell Distribution Width 15.0 % Platelet Count 240 x10^3/uL Neutrophils (%) (Auto) 69 % Lymphocytes (%) (Auto) 22 % Monocytes (%) (Auto) 8 % Eosinophils (%) (Auto) 1 % Basophils (%) (Auto) 1 % Neutrophils # (Auto) 2.6 x10^3uL Lymphocytes # (Auto) 0.8 x10^3/uL Monocytes # (Auto) 0.3 x10^3/uL Eosinophils # (Auto) 0.0 x10^3/uL Basophils # (Auto) 0.0 x10^3/uL Sodium Level 140 mmol/L Potassium Level 4.9 mmol/L Chloride Level 100 mmol/L Carbon Dioxide Level 29 mmol/L Anion Gap 11 Blood Urea Nitrogen 15 mg/dL Creatinine 1.1 mg/dL Estimated GFR (Cockcroft-Gault) 78.7 Glucose Level 96 mg/dL Calcium Level 10.1 mg/dL Troponin I High Sensitivity 7 ng/L Glucose (Fingerstick) 104 mg/dL Current Medications Medications (Trade) Dose Ordered Sig/Memo Route PRN Reason Start Time Stop Time Status Last Admin Dose Admin Sodium Chloride 500 ml @ 0 mls/hr 1X ONCE IV 10/16/21 12:30 10/16/21 12:31 DC 10/16/21 12:30 Meclizine HCl (Antivert) 25 mg 1X ONCE PO 10/16/21 12:30 10/16/21 12:31 DC 10/16/21 12:47 EKG EKG EKG ordered and interpreted by myself at 1246 hrs. as sinus rhythm at 76 bpm, unremarkable intervals, no axis deviation, T wave inversions noted in lead V5 and V6, no STEMI Radiology/Procedures Radiology/Procedures EXAM: Head CT without contrast. HISTORY: Dizziness. TECHNIQUE: Computed tomographic images of the head were obtained without contras t. *One or more of the following individualized dose reduction techniques were utilized for this examination: 1. Automated exposure control. 2. Adjustment of the mA and/or kV according to patient size. 3. Use of iterative reconstruction technique. COMPARISON: None. FINDINGS: There is no acute or subacute extra-axial or intraparenchymal hemorrhage. There is no mass effect or midline shift. There is no hydrocephalus. There are areas of decreased attenuation within the cerebral white matter, nonspecific and likely related to chronic small vessel disease. There is cerebral volume loss. The visualized portions of the orbits, paranasal sinuses and mastoid air cells are unremarkable. No suspicious calvarial lesion is seen. IMPRESSION: No acute intracranial finding. Note is made that MRI is more sensitive for acute infarction. Electronically signed by: Enma Low MD (10/16/2021 12:37 PM) [id number] ///////////////////////////////////////////// EXAM: Chest, single view. HISTORY: Dizziness. COMPARISON: 09/03/2018 FINDINGS: A frontal view of the chest is obtained. There is no infiltrate, pleural effusion or pneumothorax. The there is a stable prominent cardiac silhouette. There are incidental surgical anchors within the right humeral head and there has been distal right clavicle resection. IMPRESSION: No acute pulmonary finding. Electronically signed by: Enma Low MD (10/16/2021 12:39 PM) [id number] Heart Score C/O Chest Pain: No HEART Score for Chest Pain: HEART Score for Chest Pain Response (Comments) Value History Slighlty/Non-Suspicious 0 ECG Normal 0 Age > 65 2 Risk Factors 1 or 2 Risk Factors 1 Troponin < Normal Limit 0 Total 3 Risk Factors: Risk Factors: DM, Current or recent (<one month) smoker, HTN, HLP, family history of CAD, obesity. Risk Scores: Risk Factors: DM, Current or recent (<one month) smoker, HTN, HLP, family history of CAD, obesity. Course & Med Decision Making Course & Med Decision Making ABCs unremarkable HPI physical exam and comprehensive ER work-up nonconcerning for any emergent or surgical issues Patient ambulatory without issues and has sporadic dizziness. Symptoms appeared to improve with IV fluid rehydration and meclizine I discussed uncertainty of etiology of patient's dizziness. Further outpatient work-up that should include MRI recommended in an otherwise well-appearing ambulatory patient who is a low fall risk at present In addition, patient and are concerned about potential rosuvastatin as source of dizziness given restarting this medication 48 hours ago with increased frequency of dizziness. Joint decision made to discontinue rosuvastatin and contact primary care physician this afternoon to review continued need for this medication and/or potential alternative prescription Strict return precautions were discussed with good understanding by patient and at bedside, all questions and concerns were addressed prior to ER departure Dragon Disclaimer Dragon Disclaimer This electronic medical record was generated, in whole or in part, using a voice recognition dictation system. Departure Departure: Impression: Primary Impression: Dizziness Disposition: HOME / SELF CARE / HOMELESS Condition: STABLE Referrals: LINDA BELL (PCP) Additional Instructions: As discussed prior to ER departure, your vitals, physical examination and comprehensive ER work-up were nonconcerning for any emergent or surgical issues. The etiology of your dizziness is unknown. It is recommended that you seek close outpatient follow-up with primary care physician to review need for further work-up on this matter. Tests such as an MRI head should be performed if it has not been done recently. In addition, there is concern that your recently started rosuvastatin is the source of your dizziness. As such, please contact your primary care provider to review continued need of this medication and potential need for alternative prescription. If any concerning signs or symptoms present prior to outpatient follow-up please do not hesitate to come back for repeat evaluation. It was a pleasure to take care of you and I wish you the best going forward Scripts Meclizine Hcl (MECLIZINE HCL) 25 Mg Tablet 1 TAB PO PRN TID for DIZZINESS, #30 TAB Prov: BIPIN GOLDBERG DO 10/16/21 BIPIN GOLDBERG DO Oct 16, 2021 12:26
[2021-10-16] MEDS ORDERED: IV NORMAL SALINE 500ML 500 ML IV ONE (12:30)
[2021-10-16] MEDS ORDERED: MECLIZINE 12.5 MG TABLET. PO ONE (12:30)
--- NOTE | 2021-10-16 12:40 | RAD ---
EXAM: Head CT without contrast. HISTORY: Dizziness. TECHNIQUE: Computed tomographic images of the head were obtained without contrast. *One or more of the following individualized dose reduction techniques were utilized for this examina tion: 1. Automated exposure control. 2. Adjustment of the mA and/or kV according to patient size. 3. Use of iterative reconstruction technique. COMPARISON: None. FINDINGS: There is no acute or subacute extra-axial or intraparenchymal hemorrhage. There is no mass effect or midline shift. There is no hydrocephalus. There are areas of decreased attenuation within the cerebral white matter, nonspecific and likely rel ated to chronic small vessel disease. There is cerebral volume loss. The visualized portions of the orbits, paranasal sinuses and mastoid air cells are unremarkable. No s uspicious calvarial lesion is seen. IMPRESSION: No acute intracranial finding. Note is made that MRI is more sensitive for acute infarcti on. Electronically signed by: Enma Low MD (10/16/2021 12:37 PM) [id number]
--- NOTE | 2021-10-16 12:41 | RAD ---
EXAM: Chest, single view. HISTORY: Dizziness. COMPARISON: 09/03/2018 FINDINGS: A frontal view of the chest is obtained. There is no infiltrate, pleural effusion or pneumo thorax. The there is a stable prominent cardiac silhouette. There are incidental surgical anchors wit hin the right humeral head and there has been distal right clavicle resection. IMPRESSION: No acute pulmonary finding. Electronically signed by: Enma Low MD (10/16/2021 12:39 PM) [id number]
[2021-10-16 13:16] LABS: BASO % 1 % (0-3); EOS % 1 % (0-3); HEMATOCRIT 49.8 % (39.0-53.0); HEMOGLOBIN 16.4 g/dL (13.0-17.5); LYMPH # 0.8 x10^3/uL (1.0-4.8); LYMPH % 22 % (24-48); MEAN CORPUSCULAR HEMOGLOBIN 28 pg (25-35); MEAN CORPUSCULAR HGB CONC 33 g/dL (31-37); MEAN CORPUSCULAR VOLUME 84 fL (79-100); MONO # 0.3 x10^3/uL (0.0-1.1); MONO % 8 % (0-9); NEUT # 2.6 x10^3uL (1.8-7.7); NEUT % 69 % (31-73); PLATELET COUNT 240 x10^3/uL (140-400); RED BLOOD COUNT 5.92 x10^6/uL (4.30-5.70); WHITE BLOOD COUNT 3.8 x10^3/uL (4.0-11.0)
[2021-10-16 13:27] LABS: CALCIUM 10.1 mg/dL (8.5-10.1); CREATININE 1.1 mg/dL (0.7-1.3); GFR 78.7; POTASSIUM 4.9 mmol/L (3.5-5.1)
[2021-10-16 13:49] LABS: COLOR,URINE STRAW
[2021-10-16] MEDS ORDERED: MECL-75 PO (13:49)
[2021-10-16 13:50] LABS: BACTERIA,URINE 0 /HPF (0-FEW); BILIRUBIN,URINE NEG (NEG); CLARITY,URINE CLEAR; GLUCOSE,URINE NEG (NEG); NITRITE,URINE NEG (NEG); RBC,URINE 0 /HPF (0-2); SQUAMOUS EPITHELIAL CELL,UR FEW /LPF; UROBILINOGEN,URINE 0.2 mg/dL (0.2 mg/dL); WBC,URINE 0 /HPF (0-4)
[2021-10-16 14:05] VITALS: BP 128/70
--- NOTE | 2021-10-17 03:47 | EKG ---
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
== END 2021-10-16 14:06 | disposition home or self-care (01) ==
LOC: ER 11:55
DX: R42 Dizziness and giddiness (principal); E78.5 Hyperlipidemia, unspecified; I10 Essential (primary) hypertension
CPT/HCPCS: 36415; 70450; 71045; 80048; 81001; 82947; 84484; 85025; 93005; 96360; 99285; J7040